=== PATIENT | male | born 1960 | race African-American/Black ===

== ENCOUNTER 2017-03-27 15:01 | Outpatient (CLI) | payer MEDICARE, MEDICAID ==
[2017-03-27 15:24] LABS: #Basophils 0.1 thou/uL (0.0-0.2); #Eosinphils 0.1 thou/uL (0.0-0.7); #Lymphocytes 1.5 thou/uL (1.20-3.40); #Monocytes 0.5 thou/uL (0.11-0.59); #Neutrophils 3.5 thou/uL (1.40-6.50); %Basophils 2.1 % (0.0-1.0); %Monocytes 8.9 % (0.0-10.0); Hemoglobin 15.4 g/dL (14.0-18.0); Mean Corpuscular HGB CONC 33.9 g/dL (32.0-36.0); Mean Corpuscular Hemoglobin 33.8 pg (27.0-31.0); Mean Corpuscular Volume 99.6 fl (80.0-94.0); Mean Platelet Volume 5.2 fL (7.4-10.4); Platelet Count 305 thou/uL (130-400); RBC Distribution Width 13.1 % (11.5-14.5); Red Blood Cell (RBC) Count 4.56 mill/uL (4.70-6.10); White Blood Cell (WBC) Count 5.6 thou/uL (4.8-10.8)
[2017-03-27 15:37] LABS: ALT (SGPT) 9 U/L (8-55); AST (SGOT) 16 U/L (5-34); Albumin 4.1 g/dL (3.5-5.0); Alkaline Phosphatase 73 U/L (40-150); Anion Gap 15 mmol/L (10-20); BUN (Urea Nitrogen) 14 mg/dL (8.4-25.7); Bilirubin, Total 0.9 mg/dL (0.2-1.2); Calc. Creatinine Clearance 0 mL/min (70-130); Calcium 9.2 mg/dL (7.8-10.44); Carbon Dioxide 25 mmol/L (22-29); Chloride 106 mmol/L (98-107); Estimated GFR-MDRD 81; Globulin 2.7 g/dL (2.4-3.5); Glucose 105 mg/dL (70-105); Potassium 3.9 mmol/L (3.5-5.1); Protein, Total 6.8 g/dL (6.0-8.3); Sodium 142 mmol/L (136-145)
[2017-03-27 15:51] LABS: Thyroid Stimulating Hormone 1.4889 uIU/mL (0.35-4.94)
[2017-03-27 16:15] LABS: PSA-Asymptomatic (SCREENING) Less than 0.02 ng/mL (0-4.0)
== END 2017-03-27 15:02 | disposition home or self-care (01) ==
LOC: HPCALD 15:01
PROVIDERS: ATTEND Family Medicine
DX: Z12.5 Encounter for screening for malignant neoplasm of prostate (principal); K29.50 Unspecified chronic gastritis without bleeding
CPT/HCPCS: 36415; 80053; 84443; 85025; G0103

== ENCOUNTER 2017-09-28 05:40 | Emergency (ER) | payer MEDICARE, MEDICAID ==
[2017-09-28] MEDS ORDERED: Ondansetron ODT 4 MG TAB ONE (05:57)
[2017-09-28] MEDS ORDERED: Oseltamivir 75 MG CAP ONE (06:07)
== END 2017-09-28 06:21 | disposition home or self-care (01) ==
LOC: BURERS 05:40
DX: J11.1 Influenza due to unidentified influenza virus with other respiratory manifestations (principal); F17.220 Nicotine dependence, chewing tobacco, uncomplicated
CPT/HCPCS: 99283; Q0162

== ENCOUNTER 2018-01-28 13:37 | Emergency (ER) | payer MEDICARE, MEDICAID ==
[2018-01-28] MEDS ORDERED: methylPREDNISolone Sod Succ/PF 125 MG/2 ML VIAL ONE (13:59)
[2018-01-28] MEDS ORDERED: Fentanyl 100 MCG/2 ML VIAL ONE (13:59)
[2018-01-28] MEDS ORDERED: Ketorolac Tromethamine 30 MG/ML VIAL ONE (13:59)
[2018-01-28 14:07] LABS: #Basophils 0.1 thou/uL (0.0-0.2); #Eosinphils 0.1 thou/uL (0.0-0.7); #Monocytes 0.8 thou/uL (0.11-0.59); #Neutrophils 4.3 thou/uL (1.40-6.50); %Basophils 1.4 % (0.0-1.0); %Eosinophils 0.9 % (0.0-10.0); %Lymphocytes 27.7 % (21.0-51.0); %Monocytes 10.8 % (0.0-10.0); %Neutrophils 59.2 % (42.0-75.0); Hemoglobin 13.1 g/dL (14.0-18.0); Mean Corpuscular HGB CONC 36.2 g/dL (32.0-36.0); Mean Corpuscular Volume 91.2 fL (78.0-98.0); Mean Platelet Volume 4.8 fL (7.4-10.4); Platelet Count 293 thou/uL (130-400); RBC Distribution Width 12.3 % (11.5-14.5); Red Blood Cell (RBC) Count 3.97 mill/uL (4.70-6.10); White Blood Cell (WBC) Count 7.3 thou/uL (4.8-10.8)
[2018-01-28 14:24] LABS: Anion Gap 13 mmol/L (10-20); BUN (Urea Nitrogen) 9 mg/dL (8.4-25.7); Calc. Creatinine Clearance 0 mL/min (70-130); Calcium 9.3 mg/dL (7.8-10.44); Carbon Dioxide 27 mmol/L (22-29); Chloride 105 mmol/L (98-107); Estimated GFR-MDRD Greater than 90; Glucose 96 mg/dL (70-105); Potassium 3.5 mmol/L (3.5-5.1); Sodium 141 mmol/L (136-145); Uric Acid 5.8 mg/dL (3.5-7.2)
== END 2018-01-28 15:09 | disposition home or self-care (01) ==
LOC: BURERS 13:37
DX: G89.29 Other chronic pain (principal); M54.5 Low back pain; D53.9 Nutritional anemia, unspecified; M10.9 Gout, unspecified; F17.210 Nicotine dependence, cigarettes, uncomplicated
CPT/HCPCS: 80048; 84550; 85025; 96374; 96375; J1885; J2930; J3010

== ENCOUNTER 2018-03-31 11:31 | Outpatient (CLI) | payer MEDICARE, MEDICAID ==
--- NOTE | 2018-03-31 19:03 | RAD ---
RIGHT FOOT THREE VIEWS: 03/31/18 No prior films were available for comparison. There has been an old ununited fracture at the base of the fifth metatarsal. This certainly is not recent. A small karla of bone just lateral to the neck of the fourth metatarsal does not appear acute either. While difficult to assess on these images, I wou ld not be surprised if there was old trauma to the medial malleolus as well. IMPRESSION: Old ununited fracture at the base of the fifth metatarsal. Possible old injury to the medial malleolu s. POS: HOME
== END 2018-03-31 11:32 | disposition home or self-care (01) ==
LOC: BURRAD 11:31
PROVIDERS: ATTEND Family Medicine
DX: M79.671 Pain in right foot (principal); Z87.81 Personal history of (healed) traumatic fracture

== ENCOUNTER 2018-11-15 11:32 | Emergency (ER) | payer MEDICARE, MEDICAID ==
[2018-11-15] MEDS ORDERED: Oseltamivir 75 MG CAP ONE (12:17)
[2018-11-15] MEDS ORDERED: Benzonatate 100 MG CAP ONE (12:18)
== END 2018-11-15 12:35 | disposition home or self-care (01) ==
LOC: BURERS 11:32
DX: J11.1 Influenza due to unidentified influenza virus with other respiratory manifestations (principal); M10.9 Gout, unspecified; F17.220 Nicotine dependence, chewing tobacco, uncomplicated; Z79.899 Other long term (current) drug therapy
CPT/HCPCS: 99283

== ENCOUNTER 2019-01-01 11:54 | Emergency (ER) | payer MEDICARE, MEDICAID ==
[2019-01-01] MEDS ORDERED: Ketorolac Tromethamine 60 MG/2 ML VIAL ONE (12:19)
[2019-01-01 12:48] LABS: #Eosinphils 0.1 thou/uL (0.0-0.7); #Lymphocytes 1.9 thou/uL (1.20-3.40); #Monocytes 0.9 thou/uL (0.11-0.59); #Neutrophils 5.1 thou/uL (1.40-6.50); %Basophils 0.5 % (0.0-1.0); %Eosinophils 0.6 % (0.0-10.0); %Lymphocytes 23.3 % (21.0-51.0); %Monocytes 11.6 % (0.0-10.0); %Neutrophils 63.9 % (42.0-75.0); Hemoglobin 13.7 g/dL (14.0-18.0); Mean Corpuscular Hemoglobin 30.9 pg (27.0-31.0); Mean Corpuscular Volume 99.7 fL (78.0-98.0); Mean Platelet Volume 5.1 fL (7.4-10.4); Platelet Count 384 thou/uL (130-400); RBC Distribution Width 12.6 % (11.5-14.5); Red Blood Cell (RBC) Count 4.43 mill/uL (4.70-6.10)
--- NOTE | 2019-01-01 13:00 | RAD ---
Exam: Chest 2 views HISTORY:Fever Comparison: 07/02/2016 FINDINGS: Lungs: No masses or consolidation. Cardiac silhouette:Stable Pulmonary vessels: Normal Pleural Spaces: Clear Pneumothorax: None Osseous abnormalities: None of acuity. IMPRESSION: Stable chest
[2019-01-01 13:02] LABS: ALT (SGPT) 11 U/L (8-55); AST (SGOT) 19 U/L (5-34); Albumin 4.2 g/dL (3.5-5.0); Alkaline Phosphatase 83 U/L (40-150); Anion Gap 14 mmol/L (10-20); BUN (Urea Nitrogen) 13 mg/dL (8.4-25.7); Bilirubin, Total 0.8 mg/dL (0.2-1.2); Calc. Creatinine Clearance 0 mL/min (70-130); Calcium 9.6 mg/dL (7.8-10.44); Carbon Dioxide 27 mmol/L (22-29); Chloride 102 mmol/L (98-107); Estimated GFR-MDRD 71; Globulin 3.5 g/dL (2.4-3.5); Glucose 101 mg/dL (70-105); Potassium 3.5 mmol/L (3.5-5.1); Protein, Total 7.7 g/dL (6.0-8.3); Sodium 139 mmol/L (136-145)
[2019-01-01 14:25] LABS: Bilirubin Small (Negative); Blood, Urine Moderate (Negative); Clarity Cloudy (Clear); Glucose, Urine (Dipstick) Negative (Negative); Leukocyte Negative (Negative); Nitrite Negative (Negative); Protein, Urine (Dipstick) 30 mg/dL (Neg-Trace); Specific Gravity, Urine 1.015 (1.005-1.030); pH, Urine 5.5 (5.0-9.0)
[2019-01-01 14:36] LABS: Bacteria/HPF None Seen HPF (None Seen); Crystals/HPF None Seen HPF (Negative); Oval Fat Bodies/HPF None Seen HPF (None Seen); Renal Epithelial None Seen HPF (0-3); Sperm/HPF None Seen HPF (None Seen); Squamous Epithelial None Seen HPF (0-3); Transitional Epithelial 0-3 HPF (0-3); Trichomonas/HPF None Seen HPF (None Seen); WBC/HPF 0-3 HPF (0-3); Yeast-All Forms None Seen HPF (None Seen)
[2019-01-01 14:37] LABS: Amphetamine Not Detected (NotDetected); Barbiturates Screen Not Detected (NotDetected); Benzodiazepine Screen Not Detected (NotDetected); Cocaine Metabolite Screen Not Detected (NotDetected); Hyaline Casts/LPF NONE SEEN LPF (0-3 Hyaline); Medtox Control Line Valid? VALID (VALID); Methadone Not Detected (NotDetected); Methamphetamine Not Detected (NotDetected); Opiate Screen Detected (NotDetected); Other Casts/LPF None Seen LPF (0-3 Hyaline); Oxycodone Screen Not Detected (NotDetected); Phencyclidine (PCP) Not Detected (NotDetected); THC/Cannabinoid Screen Not Detected (NotDetected); Tricyclic Screen Not Detected (NotDetected)
== END 2019-01-01 14:35 | disposition short-term general hospital (02) ==
LOC: BURERS 11:54
DX: M54.5 Low back pain (principal); R50.9 Fever, unspecified; M10.9 Gout, unspecified; F17.210 Nicotine dependence, cigarettes, uncomplicated; Z79.899 Other long term (current) drug therapy
CPT/HCPCS: 51701; 71046; 80053; 80306; 81003; 81015; 85025; 85652; 87804; 96372; 99284; J1885

== ENCOUNTER 2019-03-03 14:13 | Emergency (ER) | payer MEDICARE, MEDICAID | END 2019-03-03 14:45 | disposition home or self-care (01) | LOC: BURERS 14:13 | DX: M25.512 Pain in left shoulder (principal); M10.9 Gout, unspecified; F17.220 Nicotine dependence, chewing tobacco, uncomplicated; Z79.899 Other long term (current) drug therapy | CPT/HCPCS: 93005 ==

== ENCOUNTER 2019-08-15 10:06 | Outpatient (CLI) | payer MEDICARE, MEDICAID ==
--- NOTE | 2019-08-15 17:16 | RAD ---
LUMBAR SPINE FOUR VIEWS: Date: 08-15-2019 FINDINGS: Comparison is made with prior study of 12-20-14. There has been no significant interval change. Degenerative changes at the L5-S1 level with disc spac e narrowing and osteophytes is present as before. The other disc spaces appear intact. No fracture is seen. Minimal wedging of the L2 vertebral body was present before and is no different. Flexion and e xtension lateral views show no abnormal motion. The SI joints appear normal. IMPRESSION: Very little change in the appearance of the spine since 2014. Major degenerative changes at the lumbo sacral junction. POS: HOME
== END 2019-08-15 10:07 | disposition home or self-care (01) ==
LOC: BURRAD 10:06
PROVIDERS: ATTEND Surgery
DX: M48.061 Spinal stenosis, lumbar region without neurogenic claudication (principal); M47.817 Spondylosis without myelopathy or radiculopathy, lumbosacral region
CPT/HCPCS: 72110

== ENCOUNTER 2019-10-03 12:34 | Outpatient (CLI) | payer MEDICARE, MEDICAID ==
--- NOTE | 2019-10-03 17:38 | RAD ---
CHEST TWO VIEWS: Date: 10-03-2019 FINDINGS: Comparison is made with a 01-01-19 study. The heart is normal in size and the lungs are clear. No acute infiltrate or effusion was seen. The me diastinum appears normal and the trachea is midline. IMPRESSION: No acute thoracic finding. POS: HOME
== END 2019-10-03 12:35 | disposition home or self-care (01) ==
LOC: BURRAD 12:34
PROVIDERS: ATTEND Family Medicine
DX: Z01.818 Encounter for other preprocedural examination (principal)
CPT/HCPCS: 71046; 93005; 93010

== ENCOUNTER 2020-02-09 10:10 | Emergency (ER) | payer MEDICARE, MEDICAID ==
[2020-02-09] MEDS ORDERED: Morphine 10 MG/ML VIAL ONE (10:45)
[2020-02-09 10:58] LABS: #Basophils 0.1 thou/uL (0.0-0.2); #Lymphocytes 1.8 thou/uL (1.20-3.40); #Monocytes 0.5 thou/uL (0.11-0.59); #Neutrophils 4.2 thou/uL (1.40-6.50); %Basophils 0.9 % (0.0-1.0); %Eosinophils 0.6 % (0.0-10.0); %Lymphocytes 26.9 % (21.0-51.0); %Monocytes 8.1 % (0.0-10.0); %Neutrophils 63.4 % (42.0-75.0); Hemoglobin 14.5 g/dL (14.0-18.0); Mean Corpuscular HGB CONC 30.4 g/dL (32.0-36.0); Mean Corpuscular Hemoglobin 30.9 pg (27.0-31.0); Mean Platelet Volume 5.9 fL (7.4-10.4); Platelet Count 376 thou/uL (130-400); Red Blood Cell (RBC) Count 4.69 mill/uL (4.70-6.10); White Blood Cell (WBC) Count 6.6 thou/uL (4.8-10.8)
[2020-02-09 11:12] LABS: ALT (SGPT) 12 U/L (8-55); AST (SGOT) 19 U/L (5-34); Albumin 4.2 g/dL (3.5-5.0); Alkaline Phosphatase 86 U/L (40-110); Anion Gap 15 mmol/L (10-20); BUN (Urea Nitrogen) 12 mg/dL (8.4-25.7); Bilirubin, Total 0.5 mg/dL (0.2-1.2); Calc. Creatinine Clearance 0 mL/min (70-130); Calcium 9.4 mg/dL (7.8-10.44); Carbon Dioxide 24 mmol/L (22-29); Chloride 105 mmol/L (98-107); Estimated GFR-MDRD 80; Globulin 3.6 g/dL (2.4-3.5); Glucose 100 mg/dL (70-105); Potassium 3.4 mmol/L (3.5-5.1); Protein, Total 7.8 g/dL (6.0-8.3); Sodium 141 mmol/L (136-145)
--- NOTE | 2020-02-09 16:46 | RAD ---
PORTABLE CHEST: 02/09/20 Comparison is made with the 07/02/16 study. The heart is normal in size and the lungs are clear. No infiltrate or effusion was seen. No vascular congestion or edema is present. The trachea is midline and the mediastinum was unremarkable in appear ance. IMPRESSION: No acute finding. POS: HOME
--- NOTE | 2020-02-09 17:02 | CT ---
CT LUMBAR SPINE: 02/09/20 COMPARISON: Comparison is mad with a 01/01/19 MRI. No fracture, dislocation, or acute bony change was seen at any of the lumbar levels surveyed. The vis ible portions of the SI joints were unremarkable. Degenerative disc disease is present at L5-S1 with disc space narrowing and vacuum phenomenon as well as osteophytes anteriorly and posteriorly. Finding s by level follow: T12-L1: Mild facet arthritis but no acute changes. L1-L2: No acute findings. L2-L3: No acute findings. L3-L4: Perhaps a little concentric bulge of the disc but no stenosis or other acute findings. L4-L5: Some Schmorl's node formation in the inferior aspect of L4. Mild concentric bulge of the disc without focal herniation. No evidence of foraminal stenosis. Some facet overgrowth. L5-S1: There has been laminectomy at L5. The neural foramina are patent. There is some posterior disc osteophyte complex present. IMPRESSION: Degenerative changes and prior laminectomy at the L5-S1 level. No acute traumatic change is appreciat ed. Preliminary report discussed with Dr. Strickland at 11:25 on 02/09/20. POS: HOME
== END 2020-02-09 11:50 | disposition home or self-care (01) ==
LOC: BURERS 10:10
DX: S30.0XXA Contusion of lower back and pelvis, initial encounter (principal); R55 Syncope and collapse; M10.9 Gout, unspecified; F17.210 Nicotine dependence, cigarettes, uncomplicated; Z79.899 Other long term (current) drug therapy; W19.XXXA Unspecified fall, initial encounter
CPT/HCPCS: 36415; 71045; 72131; 80053; 83880; 84484; 85025; 93005; 96372; J2270

== ENCOUNTER 2021-03-26 10:17 | Emergency (ER) | payer MEDICARE, MEDICAID ==
[2021-03-26 10:49] LABS: #Basophils 0.1 thou/uL (0.0-0.2); #Eosinphils 0.1 thou/uL (0.0-0.7); #Lymphocytes 1.6 thou/uL (1.20-3.40); #Monocytes 0.7 thou/uL (0.11-0.59); #Neutrophils 4.2 thou/uL (1.40-6.50); %Lymphocytes 23.7 % (21.0-51.0); %Monocytes 10.4 % (0.0-10.0); %Neutrophils 63.9 % (42.0-75.0); Hemoglobin 14.4 g/dL (14.0-18.0); Mean Corpuscular HGB CONC 33.1 g/dL (32.0-36.0); Mean Corpuscular Hemoglobin 33.3 pg (27.0-31.0); Mean Platelet Volume 5.1 fL (7.4-10.4); Platelet Count 356 thou/uL (130-400); RBC Distribution Width 12.7 % (11.5-14.5); Red Blood Cell (RBC) Count 4.32 mill/uL (4.70-6.10); White Blood Cell (WBC) Count 6.6 thou/uL (4.8-10.8)
[2021-03-26] MEDS ORDERED: traMADol HCl 50 MG TAB ONE (10:52)
[2021-03-26] MEDS ORDERED: Ibuprofen 800 MG TAB ONE (10:52)
[2021-03-26 11:03] LABS: Anion Gap 12 mmol/L (10-20); BUN (Urea Nitrogen) 14 mg/dL (8.4-25.7); Calc. Creatinine Clearance 0 mL/min (70-130); Carbon Dioxide 27 mmol/L (22-29); Chloride 104 mmol/L (98-107); Glucose 88 mg/dL (70-105); Potassium 3.9 mmol/L (3.5-5.1); Sodium 139 mmol/L (136-145); Uric Acid 6.7 mg/dL (3.5-7.2)
[2021-03-26] MEDS ORDERED: Dexamethasone 4 mg/ml Vial ONE (11:22)
[2021-03-26] MEDS ORDERED: Dexamethasone 4 MG TAB ONE (11:22)
== END 2021-03-26 11:28 | disposition home or self-care (01) ==
LOC: BURERS 10:17
DX: M25.532 Pain in left wrist (principal); M10.9 Gout, unspecified; F17.220 Nicotine dependence, chewing tobacco, uncomplicated
CPT/HCPCS: 36415; 80048; 84550; 85025; J1100; J8540

== ENCOUNTER 2021-11-24 12:14 | Emergency (ER) | payer MEDICARE, MEDICAID ==
[2021-11-24] MEDS ORDERED: Cyclobenzaprine 10 MG TAB ONE (12:41)
[2021-11-24] MEDS ORDERED: Ibuprofen 800 MG TAB ONE (12:41)
== END 2021-11-24 13:17 | disposition home or self-care (01) ==
LOC: BURERS 12:14
DX: M54.2 Cervicalgia (principal); M10.9 Gout, unspecified; F17.220 Nicotine dependence, chewing tobacco, uncomplicated
CPT/HCPCS: 99283

== ENCOUNTER 2022-09-30 08:57 | Emergency (ER) | payer MEDICARE, MEDICAID ==
[2022-09-30 09:33] LABS: #Basophils 0.1 thou/uL (0.0-0.2); #Lymphocytes 1.9 thou/uL (1.20-3.40); #Monocytes 0.9 thou/uL (0.11-0.59); #Neutrophils 5.6 thou/uL (1.40-6.50); %Basophils 0.9 % (0.0-1.0); %Eosinophils 0.5 % (0.0-10.0); %Lymphocytes 22.1 % (21.0-51.0); %Monocytes 10.8 % (0.0-10.0); %Neutrophils 65.6 % (42.0-75.0); Hemoglobin 15.4 g/dL (14.0-18.0); Mean Corpuscular Hemoglobin 33.7 pg (27.0-31.0); Mean Corpuscular Volume 99.3 fl (78.0-98.0); Mean Platelet Volume 5.4 fL (7.4-10.4); Platelet Count 322 10x3/uL (130-400); RBC Distribution Width 11.9 % (11.5-14.5); Red Blood Cell (RBC) Count 4.57 mill/uL (4.70-6.10); White Blood Cell (WBC) Count 8.5 10x3/uL (4.8-10.8)
[2022-09-30] MEDS ORDERED: Morphine 4 MG/ML VIAL ONE ×3 (09:35→10:52)
[2022-09-30] MEDS ORDERED: Morphine 2 MG/ML VIAL ONE (09:35)
[2022-09-30] MEDS ORDERED: Ketorolac Tromethamine 30 MG/ML VIAL ONE (09:36)
[2022-09-30] MEDS ORDERED: Dexamethasone 10 MG/ML VIAL ONE (09:36)
[2022-09-30 09:50] LABS: ALT (SGPT) 10 U/L (8-55); AST (SGOT) 17 U/L (5-34); Albumin 4.1 g/dL (3.4-4.8); Alkaline Phosphatase 89 U/L (40-110); Anion Gap 13 mmol/L (10-20); BUN (Urea Nitrogen) 9 mg/dL (8.4-25.7); Bilirubin, Total 1.2 mg/dL (0.2-1.2); Calc. Creatinine Clearance 0 mL/min (70-130); Calcium 9.3 mg/dL (7.8-10.44); Carbon Dioxide 27 mmol/L (23-31); Chloride 102 mmol/L (98-107); Estimated GFR 81; Glucose 101 mg/dL (80-115); Potassium 3.6 mmol/L (3.5-5.1); Protein, Total 8.1 g/dL (5.8-8.1); Sodium 138 mmol/L (136-145)
== END 2022-09-30 11:41 | disposition home or self-care (01) ==
LOC: BURERS 08:57
DX: S39.012A Strain of muscle, fascia and tendon of lower back, initial encounter (principal); M54.42 Lumbago with sciatica, left side; M54.41 Lumbago with sciatica, right side; M10.9 Gout, unspecified; F17.220 Nicotine dependence, chewing tobacco, uncomplicated; W18.30XA Fall on same level, unspecified, initial encounter
CPT/HCPCS: 71045; 80053; 83880; 84484; 85025; 93005; 96374; 96375; 96376; J1100; J1885; J2270; J2272